=== PATIENT | female | born 1995 | race Caucasian/White ===

== ENCOUNTER 2017-01-13 16:00 | Inpatient (IN) ==
[2017-01-14] MEDS ORDERED: Naloxone 0.4 MG/ML INJ IVP PRN (00:16)
[2017-01-14] MEDS ORDERED: Metoclopramide 10 MG/2 ML VIAL IVP PRN (00:16)
[2017-01-14] MEDS ORDERED: Famotidine 20 MG/2 ML VIAL IVP PRN (00:16)
[2017-01-14] MEDS ORDERED: *HR* Nalbuphine 20 MG/ML AMPUL IVP PRN (00:18)
[2017-01-14 00:30] LABS: Basophils % 0.1 %; Eosinophils % 0.3 %; Hematocrit 35.8 % (35.3-44.9); Hemoglobin 11.9 g/dL (11.5-15.4); Immature Granulocytes % 0.4 % (0-4); Immature Platelets 13.4 % (1.1-6.1); Lymphocytes % 14.2 %; Mean Corpuscular HGB Conc 33.2 g/dL (31.6-35.5); Mean Corpuscular Hemoglobin 28.5 pg (28.0-33.3); Mean Corpuscular Volume 85.6 fL (83.0-100.0); Mean Platelet Volume 12.7 fL (9.4-12.4); Monocytes # 1.1 K/mcL (0.0-1.3); Monocytes % 7.8 %; Neutrophils # 10.7 K/mcL (1.6-8.9); Platelet Count 200 K/mcL (140-400); Red Blood Count 4.18 M/mcL (3.82-4.97); Red Cell Distribution Width 13.3 % (11.5-14.5); Segmented Neutrophils % 77.2 %
[2017-01-14] MEDS ORDERED: Ringers Solution, Lactated 1,000 ML IVC SCH (00:30)
[2017-01-14 00:36] LABS: Amphetamine Screen,Urine Negative ng/mL (Cutoff=1000); Barbiturate Screen,Urine Negative ng/mL (Cutoff=200); Benzodiazepines Screen,Urine Negative ng/mL (Cutoff=200); Cannabinoid Screen,Urine Negative ng/mL (Cutoff = 50); Cocaine Screen,Urine Negative ng/mL (Cutoff= 300); Opiate Screen,Urine Negative ng/mL (Cutoff=300); Phencyclidine Screen,Urine Negative ng/mL (Cutoff=25)
--- NOTE | 2017-01-14 00:53 | Anesthesia Evaluation PreOp ---
Date of Encounter: 01/14/17 Time of Encounter: 00:43 - Past History Planned Operation: vaginal del, G1 induction Cardiac History: Denies any Significant Hx Pulmonary History: Denies Any Significant HX ROLLER TURNER History: Denies Any Significant HX Other Medical History: Other (Gestational DM, diet controlled) Anesthesia History: No Prior Anesthetic Complications Alcohol Use: none Medications and Allergies Vit No.124/Iron/FA [ Vitamin Tablet] 1 each PO DAILY 30 Days tablet 05/21/16 [Rx] 3 Allergy/AdvReac Type Severity Reaction Status Date / Time No Known Allergies Allergy Verified 05/21/16 20:33 Anesthesia Results - Labs 01/14/17 00:20 Anesthesia Exam - HEENT Pupil (Motor): Pupils equal Mallampati: II Teeth: Normal Oral Opening: Greater than 3 - ROLLER TURNER LOC: Oriented ROLLER TURNER Motor: Normal RUE, Normal LUE, Normal RLE, Normal LLE, Normal Face ROLLER TURNER Sensory: Normal: RUE, LUE, RLE, LLE, Face - Cardiac Rhythm: Regular Murmur: None - Pulmonary Breath Sounds: bilateral Clear Respiratory Effort: Symmetrical Anesthesia Assess/Plan ASA Score: 2 Modified [place] Scale for Level of Consciousness: Cooperative, oriented, and tranquil Anesthetic Plan: General, Regional Monitoring Plan: Standard Monitors
[2017-01-14] MEDS ORDERED: Epidural Premix (fent/bupiv) 110 ML EP ONE (00:58)
[2017-01-14] MEDS ORDERED: Oxytocin 20 units/ LR 1000 mL 20 UNIT/1,000 ML BAG IVC SCH ×2 (01:30→08:52)
--- NOTE | 2017-01-14 02:30 | Anesthesia Procedures ---
Date of Encounter: 01/14/17 Time of Encounter: 02:11 Procedures: Anesthesia - Epidural/Spinal Patient ID/Chart reviewed: Yes Patient examined: Yes OB Eval: Gestational age: term OB Eval: : 1 OB Eval: Dilated at (cm): 5 OB Eval: Contractions: Non-stressed pattern Consent Obtained: Yes Site Prep: Aseptic Technique, Sterile prep and drape, 0.5% Chlorhexidine/Alcohol Patient position: upright Local Anesthetic: Lidocaine 1% Amount of Local Anesthetic used: 2 Touhy Needle Gauge: 18 Touhy Needle Depth (cm): 7 Catheter Depth at Skin (cm): 11 Test Dose (1.5% Lido + Epi): Volume given (mls): 3 Test Dose Result: Negative Loading Dose: Other: 12ml from solution Loading Dose Administered: Thru Catheter Infusion Med: 0.125% Bupivacaine w/ 2 mcg/ml Fentanyl Infusion Rate (mls/hr): [address]: Tegaderm, Tape Interspace Used: L3-L4 Loss of Resistance (BERNARDA): Yes (saline) Blood: No CSF: No Paresthesia: No Procedure: vss though out, FHR stable per RN's
--- NOTE | 2017-01-14 03:01 | OB/GYN History & Physical ---
Date of Encounter: 01/14/17 Time of Encounter: 02:54 Assessment and Plan (1) Gestational diabetes Current visit: Yes Status: Acute Qualifiers: Gestational diabetes mellitus control: diet-controlled Trimester: third trimester Qualified Code(s): O24.410 - Gestational diabetes mellitus in , diet controlled (2) Encounter for planned induction of labor Current visit: Yes Status: Acute Admit to labor and delivery Start pitocin per policy Nubain and epidural as desired Anticipate (3) 39 weeks gestation of Current visit: Yes Status: Acute History of Present Illness HPI: Ms. Coelho is a 21 year old female presents for induction of labor due to term and diet controlled gestational diabetes. Pt reports good movement, denies vaginal bleeding and leaking of fluid. Pt states she has been having contractions all day and they have been increasing in intensity this evening. Labs: A+, Rubella and Varicella non immune, GBS negative. All other serologies negative. Past Med Surg Social Fam HX - Past Medical History Medical history: non-contributory Psychiatric history: no psych history - Past Surgical History Surgical History: other (c7 fracture repair) - Social History Smoking Status: Never smoker Smokeless Tobacco Status: No Alcohol use: none Drug use: none - Family History Mother Age: 38 Living Status: Still Living Hx Family Cardiac Disorders: Yes (palpatations) Hx Family Respiratory Disorders: No Hx Family Cancer: No Hx Family GI Disorders: No Hx Family Genitourinary Disorders: No Hx Family Endocrine Disorder: No Hx Family Musculoskeletal Disorders: No Hx Family Neuromuscular Disorders: No Hx Family Neurologic Disorders: No Hx Family HEENT Disorders: No Hx Family Autoimmune Disorders: No Hx Family Reproductive Disorders: No Hx Family Psychosocial Disorders: No Hx Family Medical Disorders: No Obstetrical History - Pregnancies : 1 Para: 0 Term: 0 : 0 Ab's: 0 Livin Medications and Allergies Vit No.124/Iron/FA [ Vitamin Tablet] 1 each PO DAILY 30 Days tablet 05/21/16 [Rx] 3 Allergy/AdvReac Type Severity Reaction Status Date / Time No Known Allergies Allergy Verified 05/21/16 20:33 Exam - Vital Signs Vital signs: Initial Vital Signs Temp Pulse Resp BP 98.1 F 72 16 130/89 01/14/17 01:49 01/14/17 01:49 01/14/17 01:49 01/14/17 01:49 - Constitutional Constitutional: well developed, well nourished, no acute distress - Neck Neck exam: full ROM - Lungs Respiratory exam: CTAB - Cardiovascular Cardiovascular exam: RRR - Abdomen Abdomen: Present: bowel sounds normal, gravid, non tender - Extremities Deep Tendon Reflex Grade: 2+ Normal - Vagina Vagina: Present: normal moisture - Cervix Dilation: 5 Effacement: 100 Station: -1 - Uterus Uterus exam: Present: normal size, normal contour Results Result Diagrams: 01/14/17 00:20 Abnormal lab results WBC 13.8 K/mcL (4.3-11.1) H 01/14/17 00:20 MPV 12.7 fL (9.4-12.4) H 01/14/17 00:20 Neutrophils # 10.7 K/mcL (1.6-8.9) H 01/14/17 00:20 Immature Plt Fraction 13.4 % (1.1-6.1) H 01/14/17 00:20 All other labs normal. - VTE Reasons for not Prescribing Prophylaxis: Treatment not Indicated - Low risk for VTE
[2017-01-14] MEDS ORDERED: Azithromycin 250 MG TABLET PO ONE (04:29)
[2017-01-14] MEDS ORDERED: Lidocaine -MPF 1% 2 ML VIAL ONE (05:51)
[2017-01-14] MEDS ORDERED: Lidocaine 1% 20 ML MDV ONE (05:52)
--- NOTE | 2017-01-14 06:46 | OB/GYN Procedure Note ---
Delivery - Delivery Provider: Enma Ruano Intrapartum events: none Delivery induction: oxytocin Delivery augmentation: rupture of membranes Delivery monitor: external FHT, external uterine Anesthesia: epidural Estimated Blood Loss: 200 - (s) Infant A Delivery Date: 01/14/17 Delivery Time: 05:44 Presentation: vertex Position: OA Route of delivery: Gender: Female Viability: Viable at 1 minute: 8 at 5 mins: 9 Shoulder Dystocia: not encountered Specimens collected: cord blood Placenta: spontaneous Cord: 3 umbilical vessels - Repair Episiotomy: none Laceration Description: Perineal - 2nd Degree - Complications Delivery complications: none Delivery comments: Admitted for induction of labor, already darcie. Induction with pitocin, Progressed to complete, Began maternal bearing down efforts to of liveborn female. Vertex delivered OA, shoulders and body easily followed. No nuchal cord or shoulder dystocia encountered. vigorous infant placed on maternal abdomen for drying and stimulation. APGARS 8/9. Placenta delivered spontaneously (nena ) small piece of trailing membranes detached from the placenta grasped and removed with ring forceps. Fundus massaged to firm and pitocin started per policy. Second degree perineal laceration repaired with 3-0 vycril. All sponge and needle counts correct. Mother and left bonding skin to skin for recovery. - Disposition Mom disposition: stable in LDR disposition: stable in LDR
[2017-01-14] MEDS ORDERED: Acetaminophen 325 MG TABLET PO PRN (08:52)
[2017-01-14] MEDS ORDERED: Lanolin 28 GM TUBE TP PRN (08:52)
[2017-01-14] MEDS ORDERED: Measles/Mumps/Rubella Vacc 0.5 ML VIAL SQ PRN (08:52)
[2017-01-14] MEDS ORDERED: Benzocaine/Menthol 56 GM AEROSOL SPRAY TP PRN (08:52)
[2017-01-14] MEDS ORDERED: Lanolin 7 G OINT...G. TP PRN (09:15)
[2017-01-14] MEDS: Prenatal Vit/FA 1 EACH TABLET PO SCH (09:56)
[2017-01-14] MEDS: Ibuprofen 600 MG TABLET PO PRN ×2 (09:56→16:34)
[2017-01-15] MEDS: Ibuprofen 600 MG TABLET PO PRN (03:53)
--- NOTE | 2017-01-15 07:27 | Discharge Summary ---
Date of Encounter: 01/15/17 Time of Encounter: 07:15 - Discharge Diagnosis (1) Status post vaginal delivery Priority: Primary Status: Acute (2) 39 weeks gestation of Priority: Primary Status: Acute (3) Breast feeding status of mother Status: Acute Comments: continue support prn - Discharge Medications Prescriptions: Ibuprofen [Motrin] 600 mg PO Q6HR PRN #60 tablet PRN Reason: Cramping Docusate [Colace] 100 mg PO BID #30 capsule Home Medications: Vit No.124/Iron/FA [ Vitamin Tablet] 1 each PO DAILY 30 Days tablet 05/21/16 [Rx] Docusate [Colace] 100 mg PO BID #30 capsule 01/15/17 [Rx] Ibuprofen [Motrin] 600 mg PO Q6HR PRN #60 tablet 01/15/17 [Rx] Allergies/Adverse Reactions: 3 Allergy/AdvReac Type Severity Reaction Status Date / Time No Known Allergies Allergy Verified 05/21/16 20:33 Data Procedures and tests throughout hospitalization: Laboratory Tests 01/14/17 01/14/17 00:20 00:20 WBC 13.8 H RBC 4.18 Hgb 11.9 Hct 35.8 MCV 85.6 MCH 28.5 MCHC 33.2 RDW 13.3 Plt Count 200 MPV 12.7 H Immature Gran % 0.4 Seg Neutrophils % 77.2 Lymphocytes % 14.2 Monocytes % 7.8 Eosinophils % 0.3 Basophils % 0.1 Neutrophils # 10.7 H Lymphocytes # 2.0 Monocytes # 1.1 Eosinophils # 0.0 Basophils # 0.0 Immature Plt Fraction 13.4 H Urine Opiates Screen Negative Ur Barbiturates Screen Negative Ur Phencyclidine Scrn Negative Ur Amphetamines Screen Negative U Benzodiazepines Scrn Negative Urine Cocaine Screen Negative U Marijuana (THC) Screen Negative Date of admission: 01/13/17 23:48 Primary care physician: Gia Yang Consults: 01/14/17 08:52 Consult to Plastic Press Operator [CONS] Routine Comment: Vaginal delivery, consult needed Discharging clinician: Rafy Viveros Anticipated date of discharge: 01/15/17 - Patient Status Disposition: Home, Self-Care Condition: Good Functional capacity at discharge: independent ambulation Overall status at discharge: patient is progressing back to baseline - Discharge Instructions Follow Up With: Gia Yang [Primary Care Provider] - - Diet and Activity Activity: resume usual activities as tolerated Diet: regular diet Hospital Course Reason for admission: induction of labor Delivery: Episiotomy: none Laceration: 2nd degree complications: perineal laceration Discharge diagnosis: IUP at term delivered baby: female Hospital course: Ms. Coelho is a 21 year old female that presented at 39 weeks gestation for induction of labor due to term and diet controlled gestational diabetes. Pt reported good movement, denied vaginal bleeding and leaking of fluid. Pt stated she had been having contractions all day and they have been increasing in intensity in intensity when she was admitted. Induction with pitocin, Progressed to complete, Began maternal bearing down efforts to of liveborn female. Vertex delivered OA, shoulders and body easily followed. No nuchal cord or shoulder dystocia encountered. vigorous placed on maternal abdomen for drying and stimulation. APGARS 8/9. Placenta delivered spontaneously (nena ) small piece of trailing membranes detached from the placenta grasped and removed with ring forceps. Fundus massaged to firm and pitocin started per policy. Second degree perineal laceration repaired with 3-0 vycril. All sponge and needle counts correct. When seen today, patient says that she is doing well and is in good mood. Baby is doing well and she has been breast-feeding her. Her abdominal cramping has been minimal and her vaginal bleeding has been minimal. She has not had a bowel movement yet, but she has been able to pass gas and void. She has been able to ambulate well by herself. She denies any headaches, dizziness, fever, chills, nausea, or vomiting. Patient had tested positive for chlamydia (07/06/16). She was treated with azithromycin. She has a follow-up appointment on 02/08/[address] Renteria. Delivery - Delivery Provider: Enma Ruano Intrapartum events: none Delivery induction: oxytocin Delivery augmentation: rupture of membranes Delivery monitor: external FHT, external uterine Anesthesia: epidural Estimated Blood Loss: 200 - Infant (s) Infant A Infant Delivery Date: 01/14/17 Delivery Time: 05:44 Presentation: vertex Position: OA Route of delivery: Gender: Female Viability: Viable at 1 minute: 8 at 5 mins: 9 Shoulder Dystocia: not encountered Specimens collected: cord blood Placenta: spontaneous Cord: 3 umbilical vessels - Repair Episiotomy: none Laceration Description: Perineal - 2nd Degree Time Attestation: Total time spent providing and/or coordinating discharge services: Time Spent: Less than 30 minutes Exam - Constitutional Vitals: Temp Pulse Resp BP Pulse Ox 97.9 F 89 14 130/84 97 01/15/17 04:00 01/15/17 04:00 01/15/17 04:00 01/15/17 04:00 01/15/17 04:00 General appearance IM: A&O X 3, pleasant, no acute distress, answers questions appropriately - Respiratory Respiratory exam: Present: CTAB - Cardiovascular Cardiovascular exam IM: Present: RRR, +S1, +S2 - GI/Abdominal GI/Abdominal exam IM: normal bowel sounds, soft, tenderness - Uterine Tone: Firm - Extremities Exam Extremities exam IM: Present: full ROM, normal capillary refill, normal inspection, radial pulses palpable and symmetrical. Absent: pedal edema Additional comments: Pedal pulses intact and symmetrical bilaterally. - Neurological Exam Neurological exam: reflexes normal - Attending Attestation I examined this patient and my medical decision-making was reviewed with the Resident Physician. I agree with the documented findings, disposition and treatment plan as described except to the extent set forth below. JASPER Norman
[2017-01-15 08:06] VITALS: BP 121/84
[2017-01-15] MEDS: Prenatal Vit/FA 1 EACH TABLET PO SCH (08:52)
== END 2017-01-15 11:01 | disposition home or self-care (01) | DRG 560 ==
LOC: 1NENULAB 16:04 → 1NENUOBS 01-14 08:51
PROVIDERS: ADMIT Obstetrics & Gynecology; ATTEND Student in an Organized Health Care Education/Training Program